=== PATIENT | female | born 1940 | race Two or more races ===

== ENCOUNTER 2016-09-23 07:46 | Day surgery (SDC) | payer OTHER ==
[2016-09-23] VITALS (14 sets, daily range): BP systolic 90–121; BP diastolic 40–63; PULSE 52–60; RESP 15–21; Ht 160 cm; Wt 61.3 kg
[~2016-09-23] VITALS: Ht 160 cm; Wt 61.3 kg
[2016-09-23] MEDS ORDERED: HYDROmorphONE (0.2 MG/ML) 10ML SYG IV PRN (08:00)
[2016-09-23] MEDS ORDERED: OXYCODONE/ACETAMINOPHEN (5/325) TAB PO PRN ×2 (08:00)
[2016-09-23] MEDS ORDERED: PROCHLORPERAZINE 10 MG INJ IV PRN (08:00)
[2016-09-23] MEDS ORDERED: ONDANSETRON 4 MG INJ IV PRN ×2 (08:00→12:00)
[2016-09-23] MEDS ORDERED: FENTAnyl 50 MCG/ML VIAL IV PRN (08:00)
[2016-09-23] MEDS ORDERED: DIPHENHYDRAMINE 50 MG INJ IV PRN (08:00)
[2016-09-23] MEDS ORDERED: MEPERIDINE 25 MG INJ IV PRN (08:00)
[2016-09-23] MEDS ORDERED: MIDAZOLAM 1 MG/ML 2 ML INJ ONE (09:01)
[2016-09-23] MEDS ORDERED: LIDOCAINE 2% (SDV) 5 ML INJ ONE (09:01)
[2016-09-23] MEDS ORDERED: PROPOFOL 20 ML ONE (09:01)
[2016-09-23] MEDS ORDERED: FENTAnyl 50 MCG/ML VIAL ONE (09:01)
--- NOTE | 2016-09-23 10:16 | HPN ---
Date/Time of Note Date/Time of Note DATE: 09/23/16 TIME: 10:15 Interval H&P Admission Note Pt. seen H&P reviewed: No system changes SEBASTIAN BROOKS MD Sep 23, 2016 10:16
[2016-09-23] MEDS ORDERED: POLYMYXIN/BACITRACIN 1L IRRIG ONE (10:17)
[2016-09-23] MEDS ORDERED: BUPIVACAINE 0.25% (MPF) 30 ML INJ ONE (10:17)
[2016-09-23] MEDS ORDERED: GLYCOPYRROLATE 0.4 MG INJ ONE ×2 (10:42→11:18)
[2016-09-23] MEDS ORDERED: BUPIVACAINE 0.25% (MPF) 30 ML INJ INJ ONE (10:45)
[2016-09-23] MEDS ORDERED: POLYMYXIN/BACITRACIN 1L IRRIG IRR ONE (10:45)
[2016-09-23] MEDS ORDERED: CEFAZOLIN 1 GM INJ ONE (10:51)
[2016-09-23] MEDS ORDERED: EPHEDrine SULFATE 50 MG/5 ML SYG ONE (10:51)
[2016-09-23] MEDS ORDERED: ONDANSETRON 4 MG INJ ONE (10:57)
[2016-09-23] MEDS ORDERED: METOCLOPRAMIDE 10 MG INJ ONE (10:57)
[2016-09-23] MEDS ORDERED: KETOROLAC 30 MG INJ ONE (11:01)
[2016-09-23] MEDS ORDERED: ROCURONIUM 50 MG INJ ONE (11:13)
[2016-09-23] MEDS ORDERED: NEOSTIGMINE 3 MG/3 ML SYRINGE ONE (11:18)
--- NOTE | 2016-09-23 11:42 | OPR ---
Date/Time of Note Date/Time of Note DATE: 09/23/16 TIME: 11:36 Operative Report Procedure Date: Sep 23, 2016 Preoperative Diagnosis Ventral/umbilical hernia Postoperative Diagnosis Ventral/umbilical hernia Operation Performed Repair of ventral/umbilical hernia with mesh Surgeon: SEBASTIAN BOROKS MD Anesthesia: general Anesthesiologist: JENNIFER NICOLAS MD Estimated Blood Loss: minimal Specimens Hernia sac Grafts/Implants Ethicon proceed ventral hernia patch size small Complications: None Pt Condition Post Procedure: stable Disposition: PACU Indications Patient is an obese 76-year-old female who presented to the office with a painful bulge involving the umbilicus. She was diagnosed on physical exam as having a ventral/umbilical hernia which was chronically incarcerated with fat. She was scheduled for elective repair with mesh. All risks and benefits of the procedure including, but not limited to: Wound infection, excessive bleeding, postoperative seroma/hematoma formation, hernia recurrence, chronic pain, etc. were all discussed with the patient in full detail. She fully understood and wished to proceed with the procedure. Informed consent was obtained. Operative\Procedure Findings Ventral/umbilical hernia chronically incarcerated with fat Procedure Description Patient was brought to the operating room and placed supine on the operating table. Bilateral sequential compression devices were placed on both lower extremities. A dose of broad-spectrum perioperative intravenous antibiotics was given. After the induction of smooth general anesthesia the patient's abdomen was prepped and draped in standard surgical fashion. After performance of the surgical timeout 0.25% Marcaine was injected around the area of the incision. An infraumbilical semicircular incision was then made using a 15 blade scalpel. It was carried down through the skin and the dermis. Blunt dissection was then done using Jayla clamps to the level of the anterior rectus fascia. The umbilicus was then encircled using a Jayla clamp. A fat- containing umbilical/ventral hernia was identified. The umbilicus was then transected at its base and the sac dissected off of the umbilicus. The hernia sac was transected and passed off the field as specimen. A small Ethicon proceed ventral hernia patch was then used to repair the hernia defect. Its tails were secured to the fascia using interrupted 2-0 Novafil sutures. The mesh was soaked in antibiotic irrigation prior to insertion into the field. With the repair complete it was inspected and noted to be tension-free and hemostatic. The wound cavity was then irrigated with more antibiotic irrigation. The fascia was then reapproximated over the mesh using a 0 PDS suture in [id number] fashion. The umbilicus was then tacked back down to the fascia using interrupted 3-0 Vicryl suture. Incision was then closed in layers using interrupted 3-0 Vicryl sutures for the dermal layer. The skin was reapproximated using a running 4-0 Monocryl suture in subcuticular fashion. Further local anesthesia was applied around the skin of the incision site. Incision was cleaned and Dermabond was applied as well as an abdominal binder. The patient was awoken from anesthesia and transported to the recovery room in stable condition. All counts were correct at the end of the case 2. SEBASTIAN BROOKS MD Sep 23, 2016 11:42
[2016-09-23] MEDS: HYDROmorphONE (0.2 MG/ML) 10ML SYG IV PRN ×5 (11:51→12:20)
[2016-09-23] MEDS ORDERED: morphine 4 MG/ML VIAL IV PRN (12:00)
[2016-09-23] MEDS ORDERED: HYDROCODONE/APAP (5/325) TAB PO PRN ×2 (12:00)
[2016-09-23] MEDS ORDERED: SOD CHLORIDE 0.9% 1,000 ML IV ONE (13:00)
[2016-09-23] MEDS ORDERED: CEFAZOLIN 2 GM/50 ML (PMX) 50 ML IVPB ONE (13:00)
== END 2016-09-23 14:52 | disposition home or self-care (01) ==
LOC: SDS 07:46
PROVIDERS: ATTEND Surgery
DX: K42.9 Umbilical hernia without obstruction or gangrene (principal)
CPT/HCPCS: 49585; 88304; C1781; J0690; J1170; J1885; J2250; J2405; J2710; J2765; J3010

== ENCOUNTER 2016-11-29 12:07 | Day surgery (SDC) | END 2016-11-29 18:03 | disposition home or self-care (01) | DX: Z12.11 Encounter for screening for malignant neoplasm of colon (principal); K62.1 Rectal polyp; K64.8 Other hemorrhoids ==